=== PATIENT | female | born 2000 | race Asian ===

== ENCOUNTER 2023-01-30 11:58 | Emergency (ER) | payer OTHER, SELFPAY ==
[2023-01-30 12:05] VITALS: BP 117/71; PULSE 80; RESP 16; TEMP 36.8; O2SAT 97; BMI 21.8
--- NOTE | 2023-01-30 12:30 | CRLHL7_ITS ---
For Patients: As a result of the Century Cures Act, medical imaging exams and procedure reports are released immediately into your electronic medical record. You may view this report before your referring provider. If you have questions, please contact your health care provider. INDICATION: Fall. Neck pain. TECHNIQUE: CT of the cervical spine without contrast. Coronal and sagittal reformats are included. COMPARISON: None. FINDINGS: No acute fracture or traumatic malalignment of the cervical spine. Craniocervical junction alignment is maintained. Scattered cervical spondylosis without high grade neural foraminal stenosis. No high grade spinal canal stenosis as far as visualized. Imaged intracranial structures, cervical and paraspinous soft tissues are normal in appearance. The visualized pulmonary apices are clear. IMPRESSION: 1. No acute fracture or traumatic malalignment of the cervical spine. Please note that all CT scans at this facility use dose modulation, iterative reconstruction, and/or weight-based dosing when appropriate to reduce radiation dose to as low as reasonably achievable. Dictated by Yann Durham MD @ 01/30/2023 1:57:01 PM (Electronically Signed)
--- NOTE | 2023-01-30 19:02 | ED.GENADULT ---
HPI - General Adult General Date Seen: 01/30/23 Chief complaint: Neck Injury/Pain Stated complaint: Fell off horse hit head having neck issues Time Seen by Provider: 01/30/23 12:23 Source: patient Mode of arrival: ambulatory Limitations: no limitations History of Present Illness HPI narrative: Patient is a 22-year-old young woman who fell off of her horse yesterday. She landed on her buttocks in the sand, and then fell to the side grazing her head on the ground. She did not have significant head injury, was seen in urgent care after the fact and did not have any neck pain at that time. X-rays were not done. No loss of consciousness. She says by last night she had started to develop some pain in the back of her neck, and then this morning she had significant pain in the front of her neck which is what prompted her to come in. She does not have any radiating pain. She does not have any numbness or weakness in her arms or hands. She has not developed any significant head ache, nausea, vomiting, or other symptoms of concussion. She did take some ibuprofen earlier today. Related Data Home Medications Medication Instructions Recorded Confirmed norelgestromin-ethin.estradiol 1 tab PO DAILY 01/30/23 01/30/23 Allergies Allergy/AdvReac Type Severity Reaction Status Date / Time pistachio nut Allergy Mild stomach Verified 01/30/23 12:19 ache, rash, hives cashews Allergy Mild stomach Uncoded 01/30/23 12:19 ache, rash, hives lychee Allergy Mild stomach Uncoded 01/30/23 12:19 ache, rash, hives joel Allergy Mild stomach Uncoded 01/30/23 12:19 ache and rash, hives Review of Systems Status of ROS: Reports: 6 or more systems reviewed and unremarkable except as noted in History and below [facility] Social History Smoking Status: Never smoker Do you use any of these nicotine containing products: None Second hand tobacco smoke exposure: No How often do you have a drink containing alcohol: monthly or less How many standard drinks containing alcohol do you have on a typical day: 1 or 2 How often do you have six or more drinks on one occasion: Never AUDIT-C Alcohol total score: 1 Non-prescribed substance use: denies use service: No Exam Narrative: Exam Narrative: Vital signs as noted above. In general, an alert, well-appearing patient. Head: Normocephalic, atraumatic. Eyes: Pupils are equal reactive. Extraocular movements are full. Conjunctivae are normal. ENT: Mucous membranes are moist. Throat is normal. Neck: Cervical collar in place. I did remove this for her exam. She has tenderness over the sternocleidomastoid muscles, there is no swelling or hematoma, no visible anterior neck trauma. Trachea is midline, nontender. No stridor. She does have tenderness diffusely over the posterior neck. Heart: Regular rate and rhythm. No murmur or rub. Lungs: Clear bilaterally. No increased work of breathing, crackles or wheezes. Extremities: Well perfused. No edema. No calf tenderness. Pulses intact. Neurologic: Patient is alert and oriented to person and place. Speech is fluent. Face is symmetric. Strength is equal in upper extremities, sensation is intact to light touch. Gait stable. Affect: Normal. Skin: Warm and dry. Well perfused. Const: Vital Signs, click to edit/add: Vital Signs - 24 hr 01/30/23 12:05 Temperature 98.2 F Pulse Rate [Right Pulse Oximeter] 80 Respiratory Rate 16 Blood Pressure [Ri ght Upper Arm] 117/71 Pulse Oximetry 97 Oxygen Delivery Me thod Room Air Documenting provider has reviewed patient's vital signs: yes Course Course Hospital Course: We discussed that the anterior neck pain is related to muscle strain of the sternocleidomastoid muscles, from a whiplash type injury. Given that she does not have some posterior cervical pain, I did do a CT scan of the cervical spine. This is read by Radiology as negative for any evidence of bony injury or malalignment. Soft tissues are normal. I reviewed all this with her. I think it is reasonable to let her go, she can use ibuprofen or Tylenol and I did give her some Flexeril she would like to try that particularly at night. Ice may be helpful as well. If she has further concerns or does not improve over the next few days, follow up with primary care. If she has any acute pain or new symptoms such as radiating pain, numbness or weakness, return to the ER. Vital Signs Vital signs: Initial Vital Signs Temperature 98.2 F 01/30/23 12:05 Temperature Source Temporal Artery Scan 01/30/23 12:05 Pulse Rate 80 01/30/23 12:05 Respiratory Rate 16 01/30/23 12:05 Blood Pressure 117/71 01/30/23 12:05 Blood Pressure Mean 86 01/30/23 12:05 Blood Pressure Position Sitting 01/30/23 12:05 Pulse Oximetry 97 01/30/23 12:05 Oxygen Delivery Method 01/30/23 12:05 Vital Signs Temperature 98.2 F 01/30/23 12:05 Pulse Rate 80 01/30/23 12:05 Respiratory Rate 16 01/30/23 12:05 Blood Pressure 117/71 01/30/23 12:05 Pulse Oximetry 97 01/30/23 12:05 Oxygen Delivery Method 01/30/23 12:05 Temperature 98.2 F 01/30/23 12:05 Pulse Rate 80 01/30/23 12:05 Respiratory Rate 16 01/30/23 12:05 Blood Pressure 117/71 01/30/23 12:05 Pulse Oximetry 97 01/30/23 12:05 Oxygen Delivery Method 01/30/23 12:05 Discharge Plan Discharge Clinical Impression: Cervical strain Patient Disposition: Home, Self-Care Condition: Stable Instructions: Cervical Strain (DC) Additional Instructions: Ibuprofen 400 mg plus Tylenol 1000 mg 3 times daily with food. Flexeril if needed as a muscle relaxer. Ice as needed. Anticipate continued soreness throughout today, gradual improvement thereafter. Follow-up with your primary clinic as needed for further concerns. CT scan today shows no evidence of bony injury. Prescriptions: No Action norelgestromin-ethin.estradiol 1 tab PO DAILY Follow Up/Referrals: Provider,Not a Local [Primary Care Provider] - Stand Alone Forms: [facility] Info Instructions
== END 2023-01-30 14:09 | disposition home or self-care (01) ==
PROVIDERS: Emergency Provider Emergency Medicine
DX: S16.1XXA Strain of muscle, fascia and tendon at neck level, initial encounter (principal); V80.010A Animal-rider injured by fall from or being thrown from horse in noncollision accident, initial encounter
CPT/HCPCS: 72125; 99283; 99284